=== PATIENT | female | born 1940 | race Hispanic/Latino ===

== ENCOUNTER 2018-03-30 08:27 | Emergency (ER) | payer MEDICARE, BC ==
[2018-03-30 08:40] VITALS: O2SAT 97
[2018-03-30 08:41] VITALS: BMI 21.2
--- NOTE | 2018-03-30 09:05 | ED PDOC ---
Arrival/HPI - General Chief Complaint: Abdominal Pain Time Seen by Provider: 03/30/18 08:51 Historian: Patient - History of Present Illness Narrative History of Present Illness (Text): 03/30/18 09:05 A 77 year old female, whose past medical history includes kidney stones, hyperlipidemia, and hypertension, presents to the emergency department complaining of left sided pain since this morning. Patient reports experiencing a sharp stabbing pain this morning with associated nausea. Patient observed a small black mass in her urine cup prior to exam and could possibly be a passed kidney stone. Patient reports she is not feeling any current pain since urinating. Patient notes hr recent stool was harder than normal. Patient denies any dysuria, fever, chills, shortness of breath, chest pain, diarrhea, vomiting , back pain, neck pain, headache, dizziness, or any other complaints. Time/Duration: 4-6 hours (this morning) Symptom Onset: Gradual Symptom Course: Improving Activities at Onset: Light Context: Home Past Medical History - Provider Review Nursing Documentation Reviewed: Yes - Infectious Disease Hx of Infectious Diseases: None - Reproductive Menopause: Yes - Cardiac Hx Cardiac Disorders: Yes Hx Hypertension: Yes Hx Pacemaker: No - Pulmonary Hx Respiratory Disorders: No - Neurological Hx Paralysis: No - Hematological/Oncological Hx Blood Disorders: No Hx Blood Transfusions: No Hx Blood Transfusion Reaction: No - Musculoskeletal/Rheumatological Hx Musculoskeletal Disorders: No - Psychiatric Hx Emotional Abuse: No Hx Physical Abuse: No Hx Substance Use: No - Anesthesia Hx Anesthesia: Yes Hx Anesthesia Reactions: No - Suicidal Assessment Feels Threatened In Home Enviroment: No Family/Social History - Physician Review Nursing Documentation Reviewed: Yes Family/Social History: Unknown Family HX Smoking Status: Unknown If Ever Smoked Hx Alcohol Use: No Hx Substance Use: No Hx Substance Use Treatment: No Allergies/Home Meds Allergies/Adverse Reactions: Allergies No Known Allergies Allergy (Verified 04/20/14 23:36) Home Medications: Home Meds Medication Instructions Recorded Confirmed Metoprolol Succinate XL [Toprol XL] 50 mg PO DAILY 04/10/15 03/30/18 Pravastatin Sodium [Pravachol] 40 mg PO DAILY 10/15/15 03/30/18 Review of Systems - Physician Review All systems were reviewed & negative as marked: Yes - Review of Systems Constitutional: absent: Fevers, Night Sweats Respiratory: absent: SOB Cardiovascular: absent: Chest Pain Gastrointestinal: Abdominal Pain, Nausea. absent: Diarrhea, Vomiting Genitourinary Female: Urine Output Changes (+recent stool harder than usual) Musculoskeletal: absent: Back Pain, Neck Pain Neurological: absent: Headache, Dizziness Physical Exam Vital Signs Reviewed: Yes Vital Signs Temp Pulse Resp BP Pulse Ox 03/30/18 12:40 98.1 F 91 H 18 133/88 97 03/30/18 12:16 98.1 F 91 H 18 133/88 97 03/30/18 08:39 97.8 F 77 17 162/62 H 97 Temperature: Afebrile Blood Pressure: Hypertensive Pulse: Regular Respiratory Rate: Normal Appearance: Positive for: Well-Appearing, Non-Toxic, Comfortable Pain Distress: None Mental Status: Positive for: Alert and Oriented X 3 - Systems Exam Head: Present: Atraumatic, Normocephalic Pupils: Present: PERRL Extroacular Muscles: Present: EOMI Conjunctiva: Present: Normal Mouth: Present: Moist Mucous Membranes Neck: Present: Normal Range of Motion Respiratory/Chest: Present: Clear to Auscultation, Good Air Exchange. No: Respiratory Distress, Accessory Muscle Use Cardiovascular: Present: Regular Rate and Rhythm, Normal S1, S2. No: Murmurs Abdomen: Present: Tenderness (+Left upper quadrant tenderness). No: Distention , Peritoneal Signs, Rebound, Guarding, McBurney's Point Tender, Rovsing's Sign Present, Hernias, Feeding Tubes, Ostomy Tubes, Mass/Organomegaly Back: Present: CVA Tenderness. No: Normal Inspection (+left sided CVA tenderness), Midline Tenderness, Paraspinal Tenderness, Pain with Leg Raise, Decubitus Ulcer Upper Extremity: Present: Normal Inspection. No: Cyanosis, Edema Lower Extremity: Present: Normal Inspection. No: Edema Neurological: Present: GCS=15, CN II-XII Intact, Speech Normal Skin: Present: Warm, Dry, Normal Color. No: Rashes Psychiatric: Present: Alert, Oriented x 3, Normal Insight, Normal Concentration Medical Decision Making ED Course and Treatment: 03/30/18 09:07 Impression: 77 year old female presenting to the Emergency department complaining of left sided pain. Given hx of kidney stones as well as likely passing one, will seek CT for more stones. Will also seek ct to look for diverticulitis given reported LLQ abd pain. Plan: -- Venous blood gas -- CMP -- Lipase -- Troponin I -- CBC with differential -- CT of Abdomen & Pelvis -- EKG -- Tylenol -- Zofran -- IV fluids -- Urinalysis -- Reassess and disposition Prior Visits: Notes and results from previous visits were reviewed. Progress Notes: 03/30/18 09:05 EKG: Ordered, reviewed, and independently interpreted the EKG. Rate : 84 BPM Rhythm : NSR Interpretation : No ST-segment elevations or depressions. 03/30/18 11:39 Dictator: Isaias Gore MD Procedure: CT Abdomen and Pelvis with contrast Impression: Moderate left-sided hydronephrosis. Probable 2 mm distal ureteral stone. Left-sided nephrolithiasis. Moderate constipation. 03/30/18 11:55 Patient states she has pain medication at home and refuses to take motrin or percocet. Patient is tolerating clear fluids and will follow up with Dr. Urias. - Lab Interpretations Lab Results: 03/30/18 09:20 03/30/18 09:20 Lab Results 03/30/18 09:20: Sodium 143, Chloride 104, Potassium 3.8, Carbon Dioxide 26, Anion Gap 16, BUN 24 H, Creatinine 0.7, Est GFR ( Amer) > 60, Est GFR ( Non-Af Amer) > 60, Random Glucose 118 H, Calcium 9.3, Total Bilirubin 0.6, AST 25, ALT 25, Alkaline Phosphatase 74, Troponin I < 0.01, Total Protein 7.3, Albumin 4.2, Globulin 3.1, Albumin/Globulin Ratio 1.3, Lipase 73 03/30/18 09:20: pO2 32, VBG pH 7.32, VBG pCO2 55.0, VBG HCO3 28.3 H, VBG Total CO2 30.0 H, VBG O2 Sat (Calc) 63.7, VBG Base Excess 1.1, VBG Potassium 3.6, Sodium 139.0, Chloride 104.0, Glucose 119 H, Lactate 1.0, FiO2 21.0, Venous Blood Potassium 3.6 03/30/18 09:20: WBC 5.8, RBC 4.37, Hgb 13.4, Hct 40.1, MCV 91.8, MCH 30.7, MCHC 33.4, RDW 12.6, Plt Count 193, MPV 8.0, Gran % 86.1 H, Lymph % (Auto) 9.0 L, Boyd % (Auto) 4.3, Eos % (Auto) 0.3 L, Baso % (Auto) 0.3, Gran # 4.97, Lymph # ( Auto) 0.5 L, Boyd # (Auto) 0.3, Eos # (Auto) 0.0, Baso # (Auto) 0.02 03/30/18 09:10: Urine Color Yellow, Urine Appearance Clear, Urine pH 6.0, Ur Specific [place] 1.020, Urine Protein Negative, Urine Glucose (UA) Negative, Urine Ketones Negative, Urine Blood Small H, Urine Nitrate Negative, Urine Bilirubin Negative, Urine Urobilinogen 0.2, Ur Leukocyte Esterase Negative, Urine RBC 10 - 15, Urine WBC 0 - 2, Ur Epithelial Cells 4 - 5, Urine Bacteria Many - RAD Interpretation Radiology Orders: 03/30/18 09:13 ABDOMEN & PELVIS [ABD & PELVIS IV CONTRAST ONLY] [CT] Stat - Medication Orders Current Medication Orders: Discontinued Medications Acetaminophen (Tylenol 325mg Tab) 650 mg PO STAT STA Stop: 03/30/18 09:13 Last Admin: 03/30/18 09:22 Dose: 650 mg [facility] Pain/Vitals Document 03/30/18 09:22 SRE (Rec: 03/30/18 09:24 SRE [id number]) Pain Reassessment Is This A Pain ReAssessment? Yes Sleep Is patient sleeping during reassessment? No Presence of Pain Presence of Pain Yes Pain Scale Used Pain Scale Used Numeric Location Left, Right or Bilateral Left Pain Location Body Site Back Description Intermittent Intensity 3 Scale Used Numeric Re-Assess: [facility] Pain/Vitals Document 03/30/18 10:22 SRE (Rec: 03/30/18 11:05 SRE [id number]) Pain Reassessment Is This A Pain ReAssessment? Yes Sleep Is patient sleeping during reassessment? No Presence of Pain Presence of Pain No Sodium Chloride (Sodium Chloride 0.9%) 1,000 mls @ 75 mls/hr IV .[id number] [id number] Last Admin: 03/30/18 09:24 Dose: Ondansetron HCl (Zofran Inj) 4 mg IVP STAT STA Stop: 03/30/18 09:12 Last Admin: 03/30/18 09:24 Dose: - Scribe Statement The provider has reviewed the documentation as recorded by the Ricardo Moctezuma All medical record entries made by the Frankibcherelle were at my direction and personally dictated by me. I have reviewed the chart and agree that the record accurately reflects my personal performance of the history, physical exam, medical decision making, and the department course for this patient. I have also personally directed, reviewed, and agree with the discharge instructions and disposition. Disposition/Present on Arrival - Present on Arrival Any Indicators Present on Arrival: No History of DVT/PE: No History of Uncontrolled Diabetes: No Urinary Catheter: No History of Decub. Ulcer: No History Surgical Site Infection Following: None - Disposition Have Diagnosis and Disposition been Completed?: Yes Diagnosis: Kidney stone on left side Disposition: HOME/ ROUTINE Disposition Time: 11:45 Condition: GOOD Discharge Instructions (ExitCare): Kidney Stones in Adults Additional Instructions: strain your urine to bring the stone to your urologist. return if fever or chills. LELA AVALOS, thank you for letting us take care of you today. Your provider was Venancio Cook and you were treated for LEFT SIDE PAIN. The emergency medical care you received today was directed at your acute symptoms. If you were prescribed any medication, please fill it and take as directed. It may take several days for your symptoms to resolve. Return to the Emergency Department if your symptoms worsen, do not improve, or if you have any other problems. Please contact your doctor or call one of the physicians/clinics you have been referred to that are listed on the Patient Visit Information form that is included in your discharge packet. Bring any paperwork you were given at discharge with you along with any medications you are taking to your follow up visit. Our treatment cannot replace ongoing medical care by a primary care provider outside of the emergency department. Thank you for allowing the [facility] team to be part of your care today. If you had an X-Ray or CT scan: A Radiologist will review the ED reading if any change in treatment is needed we will contact you. If you had a blood, urine, or wound culture: It will take several days for the results, if any change in treatment is needed we will contact you. If you had an STI test: It will take 48 hours for the results. Please call after 1 week if you have not heard back. Prescriptions: Tamsulosin [Flomax] 0.4 mg PO DAILY 14 Days #14 cap Referrals: Gilbert Urias MD [Staff Provider] - Follow up with primary Miguelina Colmenares MD [Medical Doctor] - Follow up with primary Forms: Skinny Mom (Uzbek)
[2018-03-30] MEDS ORDERED: Sodium Chloride 0.9% 1,000 ML IV SCH (09:15)
[2018-03-30 09:33] LABS: VENOUS BLOOD GAS BASE EXCESS 1.1 mmol/L (0.0-2.0); VENOUS BLOOD GAS PO2 32 mm/Hg (30-55); VENOUS BLOOD PH 7.32 (7.32-7.43)
[2018-03-30 09:35] LABS: URINE BILIRUBIN NEGATIVE (NEGATIVE); URINE BLOOD SMALL (NEGATIVE); URINE GLUCOSE (UA) NEGATIVE (NEGATIVE); URINE LEUKOCYTE ESTERASE NEGATIVE Leu/uL (NEGATIVE); URINE PROTEIN NEGATIVE mg/dL (<30 mg/dL); URINE UROBILINOGEN 0.2 E.U./dL (<1 E.U./dL)
[2018-03-30 09:35] LABS: BASO # 0.02 K/mm3 (0.0-2.0); BASO % 0.3 % (0.0-3.0); EOS % 0.3 % (1.5-5.0); GRAN # 4.97 (1.4-6.5); GRAN % 86.1 % (50.0-68.0); HEMOGLOBIN 13.4 g/dL (12.0-16.0); LYMPH # 0.5 (1.2-3.4); MEAN CELL VOLUME 91.8 fl (80.0-105.0); MEAN CORPUSCULAR HEMOGLOBIN 30.7 pg (25.0-35.0); MEAN CORPUSCULAR HGB CONC 33.4 g/dl (31.0-37.0); MONO # 0.3 (0.1-0.6); MONO % 4.3 % (1.0-6.0); RBC 4.37 10^6/uL (3.5-6.1); RED CELL DISTRIBUTION WIDTH 12.6 % (11.5-14.5); WHITE BLOOD COUNT 5.8 10^3/ul (4.5-11.0)
[2018-03-30 09:52] LABS: ALB/GLOB RATIO 1.3 (1.1-1.8); ALBUMIN 4.2 g/dL (3.0-4.8); ALT/SGPT 25 U/L (7-56); AST/SGOT 25 U/L (14-36); BLOOD UREA NITROGEN 24 mg/dL (7-21); CALCIUM 9.3 mg/dL (8.4-10.5); GFR NON-AFRICAN AMERICAN > 60; LIPASE 73 U/L (23-300)
[2018-03-30 09:55] LABS: URINE APPEARANCE CLEAR (CLEAR); URINE COLOR YELLOW (YELLOW)
[2018-03-30] MEDS ORDERED: Iohexol 350 MG/100 ML VIAL ONE (10:00)
[2018-03-30 10:03] LABS: TROPONIN I < 0.01 ng/mL
[2018-03-30 10:10] LABS: URINE BACTERIA MANY (NEG); URINE WBC 0 - 2 /hpf (0-6)
--- NOTE | 2018-03-30 11:37 | CT ---
Date of service: 03/30/2018 PROCEDURE: CT Abdomen and Pelvis with contrast HISTORY: LLQ pain, L flank pain COMPARISON: None. TECHNIQUE: Contrast dose: 100 cc of Omni 350 Radiation dose: Total exam DLP = 251 mGy-cm. This CT exam was performed using one or more of the following dose reduction techniques: Automated exposure control, adjustment of the mA and/or kV according to patient size, and/or use of iterative reconstruction technique. FINDINGS: LOWER THORAX: Unremarkable. LIVER: Unremarkable. No gross lesion or ductal dilatation. GALLBLADDER AND BILE DUCTS: Unremarkable. PANCREAS: Unremarkable. No gross lesion or ductal dilatation. SPLEEN: Unremarkable. ADRENALS: Unremarkable. No mass. KIDNEYS AND URETERS: There is left-sided hydronephrosis. There is a probable 2 mm stone in the distal ureter. This is seen on image 140 series 3. Also coronal image 54 series 601. Several nonobstructing stones are seen in the left kidney. VASCULATURE: Unremarkable. No aortic aneurysm. BOWEL: Unremarkable. No obstruction. No gross mural thickening. There is a moderate degree of constipation with fecal retention throughout the colon. APPENDIX: Normal appendix. PERITONEUM: Unremarkable. No free fluid. No free air. LYMPH NODES: Unremarkable. No enlarged lymph nodes. BLADDER: Unremarkable. REPRODUCTIVE: Unremarkable. BONES: Levoscoliosis. Multilevel degenerative changes OTHER FINDINGS: None. IMPRESSION: Moderate left-sided hydronephrosis. Probable 2 mm distal ureteral stone. Left-sided nephrolithiasis. Moderate constipation
[2018-03-30 12:17] VITALS: BP 133/88; PULSE 91; RESP 18; TEMP 98.1
--- NOTE | 2018-03-31 10:12 | CARD ---
APPROVED REPORT Date of service: 03/30/2018 EKG Measurement Heart [id number] CT [id number] <Conclusion> Normal sinus rhythm Minimal voltage criteria for LVH, may be normal variant ST-T wave abnormality
== END 2018-03-30 12:20 | disposition home or self-care (01) ==
LOC: ED 08:27
DX: N20.0 Calculus of kidney (principal); I10 Essential (primary) hypertension; E78.5 Hyperlipidemia, unspecified
CPT/HCPCS: 74177; 80053; 81001; 82803; 83690; 84484; 85025; 93005; 99283; Q9967